=== PATIENT | female | born 2000 | race Caucasian/White ===

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

== ENCOUNTER → 2019-07-13 | Outpatient (CLI) | payer OTHER, BC ==
[~2019-07-13] MED LIST changes: +BUSPAR5 MG PO; +SPRINTEC 35 MCG1 TA1 PO; +TRAZODONE150 MG PO; +VRAYLAR1.5 MG PO
== END | disposition home or self-care (01) ==
LOC: RAD 18:10
DX: M54.5 Low back pain (principal)

== ENCOUNTER 2019-08-24 21:11 | Emergency (ER) | payer OTHER, BC ==
[~2019-08-24] VITALS: Ht 162.5 cm; Wt 81.6 kg
[~2019-08-24 21:11] MED LIST changes: -BUSPAR5 MG PO; -SPRINTEC 35 MCG1 TA1 PO; -TRAZODONE150 MG PO; -VRAYLAR1.5 MG PO
[2019-08-24] MEDS ORDERED: BUSPAR5 MG PO (21:23)
[2019-08-24] MEDS ORDERED: SPRINTEC 35 MCG1 TA1 PO (21:23)
[2019-08-24] MEDS ORDERED: TRAZODONE150 MG PO (21:23)
[2019-08-24] MEDS ORDERED: VRAYLAR1.5 MG PO (21:24)
== END 2019-08-24 23:21 | disposition home or self-care (01) ==
LOC: ED 21:11
DX: R09.89 Other specified symptoms and signs involving the circulatory and respiratory systems (principal); R05 Cough; Z79.899 Other long term (current) drug therapy

== ENCOUNTER 2019-12-18 07:00 | Emergency (ER) | payer OTHER, BC ==
[~2019-12-18] VITALS: Ht 162.5 cm; Wt 81.6 kg
[~2019-12-18 07:00] MED LIST changes: +BUSPAR5 MG PO; +SPRINTEC 35 MCG1 TA1 PO; +TRAZODONE150 MG PO; +VRAYLAR1.5 MG PO
[2019-12-18 08:12] LABS: BASO % 0.5 % (0.0-1.0); EOS # 0.5 10*3/uL (0.0-0.4); HEMATOCRIT 37.9 % (37.0-47.0); HEMOGLOBIN 12.1 g/dl (12.0-16.0); LYMPH # 1.6 10*3/uL (1.3-4.4); LYMPH % 24.8 % (27.0-41.0); MEAN CELL VOLUME 90.2 fl (81.0-99.0); MEAN CORPUSCULAR HGB 28.8 pg (27.0-31.0); MEAN CORPUSCULAR HGB CONC 31.9 g/dl (33.0-37.0); MEAN PLATELET VOLUME 9.1 fl (9.6-12.3); MONO # 0.6 10*3/uL (0.1-1.0); MONO % 9.1 % (3.0-9.0); NEUT # 3.7 10*3/uL (2.3-7.9); NEUT % 57.4 % (47.0-73.0); PLATELET COUNT AUTOMATED 311 10*3/uL (130-400); RED CELL DISTRI WIDTH 13.2 % (0-14.5); WHITE BLOOD COUNT 6.5 10*3/uL (4.8-10.8)
[2019-12-18 08:29] LABS: ALBUMIN 3.4 gm/dl (3.1-4.5); ALKALINE PHOSPHATASE 67 U/L (45-117); BUN 11 mg/dl (7-24); CHLORIDE 110 mmol/L (98-107); CREATININE 0.93 mg/dL (0.55-1.02); LIPASE 117 U/L (73-393); SGOT/AST 14 IU/L (3-35); SGPT/ALT 21 U/L (12-78); SODIUM 141 mmol/L (136-145); TOTAL PROTEIN 6.7 gm/dL (6.4-8.2)
[2019-12-18 08:31] LABS: BETA-HCG, QUANT < 1.0 mIU/mL (1-3)
[2019-12-18 08:32] LABS: BILIRUBIN NEGATIVE (NEGATIVE); BLOOD NEGATIVE (NEGATIVE); CLARITY SL CLOUDY (CLEAR); COLOR YELLOW (YELLOW); EPITHELIAL CELLS 16-20; GLUCOSE NEGATIVE (NEGATIVE); KETONE NEGATIVE (NEGATIVE); LEUKO ESTERASE NEGATIVE (NEGATIVE); NITRITE NEGATIVE (NEGATIVE); UROBILINOGEN 0.2 E.U./dl (0.2-1.0)
[2019-12-18 08:33] LABS: BACTERIA 2+
[2019-12-18] MEDS ORDERED: ZOFRAN4 MG PO (09:28)
== END 2019-12-18 09:31 | disposition home or self-care (01) ==
LOC: ED 07:00
PROVIDERS: Emergency Medicine
DX: K52.9 Noninfective gastroenteritis and colitis, unspecified (principal); R11.2 Nausea with vomiting, unspecified; M54.5 Low back pain; Z79.899 Other long term (current) drug therapy

== ENCOUNTER → 2020-01-01 | Outpatient (CLI) | payer OTHER, BC ==
[~2020-01-01] MED LIST changes: +ZOFRAN4 MG PO
== END | disposition home or self-care (01) ==
LOC: US 06:24
DX: R10.11 Right upper quadrant pain (principal); R11.0 Nausea

== ENCOUNTER → 2020-01-03 | Outpatient (CLI) | payer OTHER, BC | END | disposition home or self-care (01) | LOC: NM 06:50 | DX: R10.11 Right upper quadrant pain (principal); R11.0 Nausea ==

== ENCOUNTER → 2020-01-16 | Outpatient (CLI) | payer OTHER, BC ==
[~2020-01-16] MED LIST changes: +NORCO 5-325 TA1 EACH PO
== END | disposition home or self-care (01) ==
LOC: LAB 06:31
DX: K82.8 Other specified diseases of gallbladder (principal)

== ENCOUNTER → 2020-01-16 | Day surgery (SDC) | payer OTHER, BC ==
--- NOTE | 2020-01-12 09:49 | NUR ---
LEFT VOICEMAIL CONCERNING CANCELLATION OF ELECTIVE SURGERY FOR 01/16/20. ADVISED WE WILL RESHEDULE SOON POSSIBLE.
[~2020-01-16] VITALS: Ht 162.5 cm; Wt 88.5 kg
[2020-01-16] VITALS (7 sets, daily range): BP systolic 111–129; BP diastolic 69–81
[2020-01-16 07:19] LABS: BILIRUBIN NEGATIVE (NEGATIVE); CLARITY SL CLOUDY (CLEAR); COLOR YELLOW (YELLOW); GLUCOSE NEGATIVE (NEGATIVE); KETONE NEGATIVE (NEGATIVE)
[2020-01-16 07:20] LABS: BLOOD NEGATIVE (NEGATIVE); UROBILINOGEN 0.2 E.U./dl (0.2-1.0)
[2020-01-16 07:21] LABS: LEUKO ESTERASE NEGATIVE (NEGATIVE); NITRITE NEGATIVE (NEGATIVE)
[2020-01-16 07:25] LABS: BACTERIA 3+
[2020-01-16 07:25] LABS: HEMOGLOBIN 11.8 g/dl (12.0-16.0); MEAN CELL VOLUME 89.4 fl (81.0-99.0); MEAN CORPUSCULAR HGB 28.5 pg (27.0-31.0); MEAN CORPUSCULAR HGB CONC 31.9 g/dl (33.0-37.0); PLATELET COUNT AUTOMATED 304 10*3/uL (130-400); RED BLOOD COUNT 4.14 10*6/uL (4.10-5.10); RED CELL DISTRI WIDTH 13.4 % (0-14.5)
[2020-01-16 07:34] LABS: ALBUMIN 3.3 gm/dl (3.1-4.5); ALKALINE PHOSPHATASE 61 U/L (45-117); BILIRUBIN, DIRECT < 0.1 mg/dL (0.0-0.2); BUN 11 mg/dl (7-24); CHLORIDE 106 mmol/L (98-107); CREATININE 0.94 mg/dL (0.55-1.02); POTASSIUM 3.7 mmol/L (3.5-5.1); SGOT/AST 10 IU/L (3-35); SGPT/ALT 20 U/L (12-78); SODIUM 138 mmol/L (136-145); TOTAL PROTEIN 6.8 gm/dL (6.4-8.2)
[2020-01-16 07:36] LABS: ACT PARTIAL THROMBO TIME 27.1 SECONDS (20.0-32.1); INTERNATIONAL NORM RATIO 0.9 (2.0-3.5)
[2020-01-16 08:01] LABS: ATYPICAL LYMPHS 3 % (0-0); TOTAL CELLS COUNTED 100 #CELLS
[2020-01-16 08:02] LABS: PLATELET SUFFICIENCY NORMAL (NORMAL)
== END | disposition home or self-care (01) ==
LOC: SDC 01-12 14:00
PROVIDERS: Surgery
DX: K81.1 Chronic cholecystitis (principal); K82.8 Other specified diseases of gallbladder; F41.9 Anxiety disorder, unspecified; F32.9 Major depressive disorder, single episode, unspecified; Z82.49 Family history of ischemic heart disease and other diseases of the circulatory system; Z79.899 Other long term (current) drug therapy; Z98.890 Other specified postprocedural states

== ENCOUNTER → 2021-10-27 | Outpatient (CLI) | payer OTHER, BC | LOC: RAD 11:14 | PROVIDERS: ATTEND Nurse Practitioner Family | DX: U07.1 COVID-19 (principal); R05.9 Cough, unspecified; R53.83 Other fatigue ==

== ENCOUNTER → 2022-08-27 | Outpatient (CLI) | payer OTHER, BC ==
[~2022-08-27] MED LIST changes: +CLARITIN10 MG PO; +LAMICTAL150 MG PO
[2022-08-27 16:14] LABS: BASO # 0.1 10*3/uL (0.0-0.1); BASO % 0.9 % (0.0-1.0); EOS # 0.5 10*3/uL (0.0-0.4); EOS % 5.8 % (1.0-4.0); HEMATOCRIT 39.9 % (37.0-47.0); LYMPH % 36.8 % (27.0-41.0); MEAN CELL VOLUME 91.5 fl (81.0-99.0); MEAN CORPUSCULAR HGB 30.5 pg (27.0-31.0); MEAN CORPUSCULAR HGB CONC 33.3 g/dl (33.0-37.0); MEAN PLATELET VOLUME 8.7 fl (9.6-12.3); MONO # 0.6 10*3/uL (0.1-1.0); MONO % 7.5 % (3.0-9.0); NEUT # 3.9 10*3/uL (2.3-7.9); NEUT % 48.9 % (47.0-73.0); PLATELET COUNT AUTOMATED 317 10*3/uL (130-400); RED BLOOD COUNT 4.36 10*6/uL (4.10-5.10); RED CELL DISTRI WIDTH 12.5 % (0-14.5); RETICULOCYTE % 1.39 % (0.50-2.50)
[2022-08-27 16:48] LABS: FERRITIN 32.2 ng/mL (10.0-291.0)
[2022-08-28 14:09] LABS: t-TRANSGLUTAMINASE (tTG) IGA <2 U/mL (0-3); t-TRANSGLUTAMINASE (tTG) IgG <2 U/mL (0-5)
[2022-08-28 15:07] LABS: ENDOMYSIAL ANTIBODY IgA Negative (Negative)
[2022-08-31 10:06] LABS: ZINC, PLASMA 66 ug/dL (44-115)
[2022-09-02 10:07] LABS: METHYLMALONIC ACID 89 nmol/L (0-378)
== END ==
LOC: LAB 10:17
PROVIDERS: ATTEND Nurse Practitioner Family
DX: E88.81 Metabolic syndrome and other insulin resistance (principal); E03.9 Hypothyroidism, unspecified; D50.9 Iron deficiency anemia, unspecified; R53.83 Other fatigue; R19.7 Diarrhea, unspecified; Z90.49 Acquired absence of other specified parts of digestive tract

== ENCOUNTER 2023-02-25 10:50 | Emergency (ER) | payer OTHER, BC ==
[~2023-02-25] VITALS: Ht 162.5 cm; Wt 88.5 kg
[2023-02-25 11:31] LABS: BASO % 0.7 % (0.0-1.0); EOS # 0.3 10*3/uL (0.0-0.4); EOS % 4.9 % (1.0-4.0); HEMATOCRIT 39.7 % (37.0-47.0); LYMPH % 34.8 % (27.0-41.0); MEAN CELL VOLUME 91.5 fl (81.0-99.0); MEAN CORPUSCULAR HGB 30.9 pg (27.0-31.0); MEAN CORPUSCULAR HGB CONC 33.8 g/dl (33.0-37.0); MEAN PLATELET VOLUME 8.8 fl (9.6-12.3); MONO # 0.5 10*3/uL (0.1-1.0); MONO % 8.4 % (3.0-9.0); NEUT # 2.9 10*3/uL (2.3-7.9); PLATELET COUNT AUTOMATED 310 10*3/uL (130-400); RED BLOOD COUNT 4.34 10*6/uL (4.10-5.10); RED CELL DISTRI WIDTH 11.9 % (0-14.5); WHITE BLOOD COUNT 5.7 10*3/uL (4.8-10.8)
[2023-02-25 11:42] LABS: ACT PARTIAL THROMBO TIME 27.6 SECONDS (20.0-32.1); INTERNATIONAL NORM RATIO 0.9 (2.0-3.5)
[2023-02-25 11:48] LABS: ALKALINE PHOSPHATASE 59 U/L (46-116); BUN 7 mg/dl (9-23); CHLORIDE 106 mmol/L (98-107); POTASSIUM 3.6 mmol/L (3.4-5.1); SGPT/ALT 11 U/L (10-49)
[2023-02-25] MEDS ORDERED: NAPROSYN500 MG PO (13:36)
== END 2023-02-25 14:00 | disposition home or self-care (01) ==
LOC: ED 10:50
PROVIDERS: Nurse Practitioner Family
DX: R09.1 Pleurisy (principal); R07.89 Other chest pain; Z79.899 Other long term (current) drug therapy; Z90.49 Acquired absence of other specified parts of digestive tract

== ENCOUNTER → 2023-02-25 | Outpatient (CLI) | payer OTHER, BC | END | disposition home or self-care (01) | LOC: US 01:57 | PROVIDERS: ATTEND Nurse Practitioner Family | DX: E03.9 Hypothyroidism, unspecified (principal); M54.50 Low back pain, unspecified; N94.10 Unspecified dyspareunia; R10.2 Pelvic and perineal pain; D50.9 Iron deficiency anemia, unspecified ==

== ENCOUNTER → 2023-06-18 | Outpatient (CLI) | payer OTHER, BC ==
[2023-06-18 09:04] LABS: BASO % 0.5 % (0.0-1.0); EOS # 0.5 10*3/uL (0.0-0.4); EOS % 6.7 % (1.0-4.0); HEMATOCRIT 38.4 % (37.0-47.0); LYMPH # 1.7 10*3/uL (1.3-4.4); LYMPH % 21.9 % (27.0-41.0); MEAN CELL VOLUME 92.8 fl (81.0-99.0); MEAN CORPUSCULAR HGB 30.4 pg (27.0-31.0); MEAN CORPUSCULAR HGB CONC 32.8 g/dl (33.0-37.0); MEAN PLATELET VOLUME 9.4 fl (9.6-12.3); MONO # 0.8 10*3/uL (0.1-1.0); MONO % 10.2 % (3.0-9.0); NEUT # 4.6 10*3/uL (2.3-7.9); NEUT % 60.6 % (47.0-73.0); PLATELET COUNT AUTOMATED 263 10*3/uL (130-400); RED BLOOD COUNT 4.14 10*6/uL (4.10-5.10); RED CELL DISTRI WIDTH 12.4 % (0-14.5); WHITE BLOOD COUNT 7.6 10*3/uL (4.8-10.8)
[2023-06-18 09:31] LABS: ALKALINE PHOSPHATASE 84 U/L (46-116); BUN 7 mg/dl (9-23); CHLORIDE 106 mmol/L (98-107); POTASSIUM 4.4 mmol/L (3.4-5.1); SGPT/ALT 15 U/L (10-49); TOTAL PROTEIN 6.5 gm/dL (6.0-8.0)
== END | disposition home or self-care (01) ==
LOC: LAB 08:11
PROVIDERS: ATTEND Nurse Practitioner Family
DX: R09.81 Nasal congestion (principal); R05.8 Other specified cough; R53.83 Other fatigue; D50.9 Iron deficiency anemia, unspecified; E03.9 Hypothyroidism, unspecified; E88.81 Metabolic syndrome and other insulin resistance

== ENCOUNTER → 2024-01-17 | Outpatient (CLI) | payer OTHER, BC | END | disposition home or self-care (01) | LOC: RESCLI 10:56 | PROVIDERS: ATTEND Internal Medicine | DX: E66.9 Obesity, unspecified (principal); F31.9 Bipolar disorder, unspecified; D50.9 Iron deficiency anemia, unspecified; J30.9 Allergic rhinitis, unspecified; F41.9 Anxiety disorder, unspecified; E55.9 Vitamin D deficiency, unspecified; Z88.8 Allergy status to other drugs, medicaments and biological substances; Z79.899 Other long term (current) drug therapy; Z98.890 Other specified postprocedural states ==

== ENCOUNTER → 2024-01-18 | Outpatient (CLI) | payer OTHER, BC ==
[2024-01-18 08:21] LABS: BASO # 0.1 10*3/uL (0.0-0.1); BASO % 0.8 % (0.0-1.0); EOS # 0.7 10*3/uL (0.0-0.4); EOS % 9.1 % (1.0-4.0); HEMATOCRIT 38.8 % (37.0-47.0); LYMPH # 2.1 10*3/uL (1.3-4.4); LYMPH % 27.5 % (27.0-41.0); MEAN CELL VOLUME 92.4 fl (81.0-99.0); MEAN CORPUSCULAR HGB 29.8 pg (27.0-31.0); MEAN CORPUSCULAR HGB CONC 32.2 g/dl (33.0-37.0); MEAN PLATELET VOLUME 8.9 fl (9.6-12.3); MONO # 0.5 10*3/uL (0.1-1.0); MONO % 6.8 % (3.0-9.0); NEUT # 4.2 10*3/uL (2.3-7.9); NEUT % 55.5 % (47.0-73.0); PLATELET COUNT AUTOMATED 308 10*3/uL (130-400); RED CELL DISTRI WIDTH 12.4 % (0-14.5); WHITE BLOOD COUNT 7.5 10*3/uL (4.8-10.8)
[2024-01-18 08:48] LABS: ALKALINE PHOSPHATASE 66 U/L (46-116); BUN 7 mg/dl (9-23); CHLORIDE 104 mmol/L (98-107); CHOLESTEROL 197 mg/dL (<200); LDL CHOLESTEROL 83 mg/dL (9-159); SGPT/ALT 11 U/L (5-49); TOTAL PROTEIN 6.9 gm/dL (6.0-8.0); TRIGLYCERIDES 124 mg/dl (<150)
== END | disposition home or self-care (01) ==
LOC: LAB 01:01
PROVIDERS: ATTEND Nurse Practitioner Family
DX: E03.9 Hypothyroidism, unspecified (principal); F43.21 Adjustment disorder with depressed mood; R63.5 Abnormal weight gain; D50.9 Iron deficiency anemia, unspecified

== ENCOUNTER → 2024-04-18 | Outpatient (CLI) | payer OTHER, BC ==
[2024-04-18 09:00] LABS: BASO % 0.5 % (0.0-1.0); EOS # 0.6 10*3/uL (0.0-0.4); HEMATOCRIT 39.4 % (37.0-47.0); LYMPH # 2.1 10*3/uL (1.3-4.4); LYMPH % 31.8 % (27.0-41.0); MEAN CELL VOLUME 91.2 fl (81.0-99.0); MEAN CORPUSCULAR HGB 30.6 pg (27.0-31.0); MEAN CORPUSCULAR HGB CONC 33.5 g/dl (33.0-37.0); MEAN PLATELET VOLUME 9.2 fl (9.6-12.3); MONO # 0.5 10*3/uL (0.1-1.0); MONO % 7.4 % (3.0-9.0); NEUT # 3.3 10*3/uL (2.3-7.9); NEUT % 51.1 % (47.0-73.0); PLATELET COUNT AUTOMATED 309 10*3/uL (130-400); RED BLOOD COUNT 4.32 10*6/uL (4.10-5.10); RED CELL DISTRI WIDTH 12.6 % (0-14.5); WHITE BLOOD COUNT 6.5 10*3/uL (4.8-10.8)
[2024-04-18 09:57] LABS: ALKALINE PHOSPHATASE 70 U/L (46-116); BUN 6 mg/dl (9-23); CHLORIDE 107 mmol/L (98-107); SGPT/ALT 11 U/L (5-49); TOTAL PROTEIN 7.1 gm/dL (6.0-8.0)
== END | disposition home or self-care (01) ==
LOC: LAB 08:40
PROVIDERS: ATTEND Nurse Practitioner Family
DX: E03.9 Hypothyroidism, unspecified (principal)

== ENCOUNTER → 2024-04-20 | Outpatient (CLI) | payer OTHER, BC | END | disposition home or self-care (01) | LOC: US 00:27 | PROVIDERS: ATTEND Nurse Practitioner Family | DX: I88.9 Nonspecific lymphadenitis, unspecified (principal) ==

== ENCOUNTER → 2024-09-18 | Outpatient (CLI) | payer OTHER, BC ==
[2024-09-18 09:02] LABS: BASO # 0.1 10*3/uL (0.0-0.1); EOS # 0.8 10*3/uL (0.0-0.4); EOS % 9.1 % (1.0-4.0); MEAN CELL VOLUME 90.7 fl (81.0-99.0); MEAN CORPUSCULAR HGB 30.3 pg (27.0-31.0); MEAN CORPUSCULAR HGB CONC 33.4 g/dl (33.0-37.0); MEAN PLATELET VOLUME 9.4 fl (9.6-12.3); MONO # 0.6 10*3/uL (0.1-1.0); MONO % 6.9 % (3.0-9.0); NEUT # 4.9 10*3/uL (2.3-7.9); NEUT % 55.4 % (47.0-73.0); PLATELET COUNT AUTOMATED 325 10*3/uL (130-400); RED BLOOD COUNT 4.19 10*6/uL (4.10-5.10); RED CELL DISTRI WIDTH 12.5 % (0-14.5); WHITE BLOOD COUNT 8.8 10*3/uL (4.8-10.8)
[2024-09-18 09:48] LABS: ALKALINE PHOSPHATASE 65 U/L (46-116); BUN 10 mg/dl (9-23); CHLORIDE 106 mmol/L (98-107); CHOLESTEROL 189 mg/dL (<200); LDL CHOLESTEROL 87 mg/dL (9-159); POTASSIUM 4.1 mmol/L (3.4-5.1); SGPT/ALT 11 U/L (5-49); TRIGLYCERIDES 126 mg/dl (<150)
== END | disposition home or self-care (01) ==
LOC: LAB 08:13
PROVIDERS: ATTEND Nurse Practitioner Family
DX: E03.9 Hypothyroidism, unspecified (principal)